=== PATIENT | male | born 2005 | race Asian ===

== ENCOUNTER 2025-08-23 14:11 | Emergency (ER) | payer OTHER, SELFPAY ==
[2025-08-23 14:19] VITALS: BP 104/84; PULSE 77; RESP 18; TEMP 36.6; O2SAT 97
[2025-08-23] MEDS: PHENYLEPHRINE 1% NA SPR (*BKC) 15 ML BTL 1 SPRAY NASAL (14:30)
--- NOTE | 2025-08-23 15:42 | ED_ITS ---
HPI - Epistaxis General Chief complaint: Epistaxis Stated complaint: nose bleed Time Seen by Provider: 08/23/25 14:15 Source: patient Mode of arrival: ambulatory Limitations: no limitations History of Present Illness HPI Narrative: 19-year-old otherwise healthy here with a complains of bleeding from right naris since the last few hours on and off. Denies any trauma. Patient states that he gets intermittent bleeds since his childhood. MD complaint: epistaxis Location: right nostril Onset (ago): hour(s) (1) Duration: intermittent Context: history of previous Treatment prior to arrival: nose pinching Related Data Allergies Allergy/AdvReac Type Severity Reaction Status Date / Time No Known Allergies Allergy Verified 08/23/25 14:21 Review of Systems Review of Systems: All systems reviewed & are unremarkable except as noted in HPI and below Constitutional: Constitutional: Reports no additional constitutional complaints Eyes: Eyes: Reports no additional eye complaints ENT: Reports as per HPI Cardiovascular: Cardiovascular: Reports no additional cardiovascular complaints Respiratory: Respiratory: Reports no additional respiratory complaints Gastrointestinal: Gastrointestinal: Reports no additional gastrointestinal c omplaints Musculoskeletal: Musculoskeletal: Reports no additional musculoskeletal complaints Neurologic: Reports system reviewed and no additional complaints, except as documented Exam Narrative: GENERAL: Well-appearing, well-nourished, and in no acute distress. HEAD: Normocephalic, atraumatic. EYES: PERRLA and EOMI. ENT: Right NARES VERY MINIMAL BLEED FROM THE ANTERIOR SEPTUM NECK: Supple. CHEST: Clear to auscultation. No respiratory distress. HEART: Regular rate and rhythm. No murmur heard. Normal peripheral pulses. EXTREMITIES: Normal range of motion. No edema. SKIN: Warm, dry, no rash. NEURO: No focal deficits. Alert and oriented x3. PSYCH: Normal mood and affect. Course Course Emergency Course: Neosynephine sprayed in the right naris , Silver nitrate stick was used to cauterize , bleeding controlled . Vital Signs Vital signs: Vital Signs Temperature 36.6 C 08/23/25 14:19 Pulse Rate 77 08/23/25 14:19 Respiratory Rate 18 08/23/25 14:19 Blood Pressure 104/84 08/23/25 14:19 Pulse Oximetry 97 08/23/25 14:19 Oxygen Delivery Room Air 08/23/25 14:19 Temperature 36.6 C 08/23/25 14:19 Pulse Rate 77 08/23/25 14:19 Respiratory Rate 18 08/23/25 14:19 Blood Pressure 104/84 08/23/25 14:19 Pulse Oximetry 97 08/23/25 14:19 Oxygen Delivery Room Air 08/23/25 14:19 Procedures Epistaxis Control right: Epistaxis Control Date: 08/23/25 Nose Prepped With: phenylephrine Direct Inspection: yes Cautery Used: silver nitrate Patient Tolerated Procedure: well Discharge Plan Discharge Clinical Impression: Epistaxis Patient Disposition: Home Condition: Stable Instructions: Nosebleed (ED) Additional Instructions: Do not blow the nose , use the nasal spray 3 times a day. follow with ENT Patient Language: Ethiopian Follow-up/Referrals: Lorna Luna MD [Primary Care Provider, Internal Medicine] Angel Fuentes MD [Physician, Ear, Nose, Throat] Time of Disposition: 15:58
== END 2025-08-23 16:10 | disposition home or self-care (01) ==
PROVIDERS: Emergency Provider Family Medicine; PCP Internal Medicine
DX: R04.0 Epistaxis (principal)
CPT/HCPCS: 30901; 99283; A9270